=== PATIENT | female | born 1995 | race American Indian/Alaskan Native ===

== ENCOUNTER 2019-11-22 21:33 | Emergency (ER) | payer SELFPAY ==
[2019-11-23] MEDS ORDERED: ACETAMINOPHEN 325 MG TAB PO ONE
[2019-11-23] MEDS ORDERED: traMADol 50 MG TAB PO ONE
[2019-11-23] MEDS ORDERED: KETOROLAC 60 MG/2 ML INJ IM ONE
[2019-11-23] MEDS ORDERED: ONDANSETRON 4 MG ODT TAB PO ONE
[2019-11-23 00:01] LABS: Bacteria,Urine 1+ /HPF (Negative); Bilirubin,Urine NEG (Negative); Blood,Urine LG (Negative); Color,Urine Red (Yellow); Mucus,Urine 2+ /HPF; Urobilinogen,Urine < 2.0 mg/dL (<2.0)
[2019-11-23 00:02] LABS: RBC,Urine > 182.0 /HPF (0.0-6.0)
[2019-11-23 00:07] LABS: HCG Qualitative,Urine Negative (Negative)
[2019-11-23 00:13] LABS: Amphetamine Screen,Urine PRESUMPTIVE NEGATIVE; Benzodiazepines Screen,Urine PRESUMPTIVE NEGATIVE; Cocaine Screen,Urine PRESUMPTIVE NEGATIVE; Methadone Screen,Urine PRESUMPTIVE NEGATIVE; Opiate Screen,Urine PRESUMPTIVE NEGATIVE
[2019-11-23 00:14] LABS: Basophils % (Auto) 0.4 % (0.0-1.8); Eosinophils # (Auto) 0.1 K/mm3 (0.0-0.4); Eosinophils % (Auto) 0.8 % (0.0-4.3); Hematocrit 36.9 % (30.3-42.9); Hemoglobin 12.3 gm/dl (10.1-14.3); Lymphocytes # (Auto) 0.7 K/mm3 (1.2-5.4); Lymphocytes % (Auto) 9.6 % (13.4-35.0); Mean Corpuscular HGB Conc 33 % (30-34); Mean Corpuscular Volume 81 fl (79-97); Monocytes # (Auto) 0.8 K/mm3 (0.0-0.8); Monocytes % (Auto) 11.4 % (0.0-7.3); Platelet Count 172 K/mm3 (140-440); Red Blood Count 4.55 M/mm3 (3.65-5.03); Red Cell Distribution Width 14.8 % (13.2-15.2)
[2019-11-23 00:27] LABS: INR 1.06 (0.87-1.13)
[2019-11-23 00:37] LABS: Alanine Aminotransferase 13 units/L (7-56); Albumin 4.2 g/dL (3.9-5); BUN/Creatinine Ratio 13; Blood Urea Nitrogen 8 mg/dL (7-17); Hemolysis Index 10
[2019-11-23 00:40] LABS: Cannabinoid Screen,Urine PRESUMPTIVE POSITIVE
--- NOTE | 2019-11-23 01:02 | XRay Report ---
CHEST 2 VIEWS, 11/23/2019 12:20 AM INDICATION: Chest pain. Shortness of breath. COMPARISON: None FINDINGS: Support devices: None Heart: The heart is normal in size. Lungs/pleura: The lungs are clear of focal airspace disease or significant pleural effusion. Additional findings: Evaluation of bony structures demonstrate no evidence of acute bony abnormality. IMPRESSION: 1. No evidence of acute cardiopulmonary process. Signer Name: Alexandria Lyman MD Signed: 11/23/2019 12:57 AM Workstation Name: [id number]
--- NOTE | 2019-11-23 01:07 | Emergency Department Report ---
ED Chest Pain HPI - General Chief Complaint: Dyspnea/Respdistress Stated Complaint: ASHTYN/ANXIETY Time Seen by Provider: 11/22/19 23:52 Source: EMS Mode of arrival: Ambulatory Limitations: No Limitations, Physical Limitation - History of Present Illness Initial Comments: 24-year-old female with a past medical history of anxiety and panic attacks presents to Hospital planning of sternal chest pain just with the palpation, movement, and deep inspiration. Patient having a dry cough with hot and cold feeling and presented with a low-grade fever today. She also complains of some abdominal pain. C/o of nausea, vomiting, or diarrhea. She is no complaints of nausea, vomiting, or diarrhea. Patient does have a control implant. No calf tenderness or leg edema reported. Pt did not receive a flu shot. PMD: None Severity scale (0 -10): 5 - Related Data Home Medications Medication Instructions Recorded Confirmed Last Taken Etonogestrel [Nexplanon] 11/30/13 11/30/13 11/30/13 Previous Rx's Medication Instructions Recorded Last Taken Type Azithromycin [Zithromax] 2 tab PO ONCE #2 tablet 11/30/13 Unknown Rx Cefuroxime Axetil [Ceftin] 500 mg PO Q12H #14 tablet 11/30/13 Unknown Rx Fluconazole [Diflucan] 150 mg PO QDAY #1 tablet 11/30/13 Unknown Rx metroNIDAZOLE [Flagyl] 500 mg PO BID #20 tablet 11/30/13 Unknown Rx Benzonatate [Tessalon Perles] 100 mg PO Q8HR PRN #20 capsule 11/23/19 Unknown Rx Ibuprofen [Motrin] 800 mg PO Q8HR PRN #20 tablet 11/23/19 Unknown Rx Sulfamethoxazole/Trimethoprim 1 each PO BID #10 tablet 11/23/19 Unknown Rx [Bactrim DS TAB] traMADoL [Ultram 50 MG tab] 50 mg PO Q6HR PRN #15 tablet 11/23/19 Unknown Rx Allergies Allergy/AdvReac Type Severity Reaction Status Date / Time No Known Allergies Allergy Verified 11/30/13 05:48 Heart Score - HEART Score History: Slightly suspicious EKG: Normal Age: < 45 Risk factors: No known risk factors Troponin: < normal limit HEART Score: 0 ED Review of Systems ROS: Stated complaint: ASHTYN/ANXIETY Other details as noted in HPI Comment: All other systems reviewed and negative ED Past Medical Hx - Past Medical History Previous Medical History?: Yes Hx Seizures: Yes (no meds) Hx Psychiatric Treatment: Yes (anxiety, panic attacks) Additional medical history: Panic attack, Ovarian Cyst, anxiety - Surgical History Past Surgical History?: Yes - Social History Smoking Status: Never Smoker - Medications Home Medications: Home Medications Medication Instructions Recorded Confirmed Last Taken Type Azithromycin [Zithromax] 2 tab PO ONCE #2 tablet 11/30/13 Unknown Rx Cefuroxime Axetil [Ceftin] 500 mg PO Q12H #14 tablet 11/30/13 Unknown Rx Etonogestrel [Nexplanon] 11/30/13 11/30/13 11/30/13 History Fluconazole [Diflucan] 150 mg PO QDAY #1 tablet 11/30/13 Unknown Rx metroNIDAZOLE [Flagyl] 500 mg PO BID #20 tablet 11/30/13 Unknown Rx Benzonatate [Tessalon Perles] 100 mg PO Q8HR PRN #20 capsule 11/23/19 Unknown Rx Ibuprofen [Motrin] 800 mg PO Q8HR PRN #20 tablet 11/23/19 Unknown Rx Sulfamethoxazole/Trimethoprim 1 each PO BID #10 tablet 11/23/19 Unknown Rx [Bactrim DS TAB] traMADoL [Ultram 50 MG tab] 50 mg PO Q6HR PRN #15 tablet 11/23/19 Unknown Rx ED Physical Exam - General Limitations: No Limitations, Physical Limitation - Other Other exam information: General: No acute distress Head: Atraumatic Eyes: normal appearance ENT: Moist mucous membranes Neck: Normal appearance, no midline tenderness Chest: Clear to auscultation bilaterally, sternal chest wall tenderness to palpation and with movement CV: Regular rate and rhythm Abdomen: Soft, normal bowel sounds, mild suprapubic tenderness, nondistended, no rebound or guarding Back: Normal inspection Extremity: Normal inspection, full range of motion, tenderness or leg edema Neuro: Alert O x 3, no facial asymmetry, speech clear, no gross motor sensory deficit Psych: Appropriate behavior Skin: No rash ED Course Vital Signs 11/22/19 11/23/19 21:49 01:13 Temperature 100.1 F H 99.5 F Pulse Rate 114 H 72 Respiratory 18 20 Rate Blood Pressure 143/111 130/76 O2 Sat by Pulse 100 98 Oximetry - Reevaluation(s) Reevaluation #1: 11/23/19 01:20 Vital signs improved with pain and fever reduction. SCOTT score - Scott Score Age > 65: (0) No Aspirin use within the Past 7 Days: (0) No 3 or more CAD Risk Factors: (0) No 2 or more Angina events in past 24 hrs: (0) No Known CAD with more than 50% Stenosis: (0) No Elevated Cardiac Markers: (0) No ST Deviation Greater than 0.5mm: (0) No SCOTT Score: 0 ED Medical Decision Making - Lab Data Result diagrams: 11/23/19 00:01 11/23/19 00:01 Lab Results 11/22/19 11/22/19 11/22/19 Range/Units 23:42 23:42 23:42 WBC (4.5-11.0) K/mm3 RBC (3.65-5.03) M/mm3 Hgb (10.1-14.3) gm/dl Hct (30.3-42.9) % MCV (79-97) fl MCH (28-32) pg MCHC (30-34) % RDW (13.2-15.2) % Plt Count (140-440) K/mm3 Lymph % (Auto) (13.4-35.0) % [place] % (Auto) (0.0-7.3) % Eos % (Auto) (0.0-4.3) % Baso % (Auto) (0.0-1.8) % Lymph # (1.2-5.4) K/mm3 [place] # (0.0-0.8) K/mm3 Eos # (0.0-0.4) K/mm3 Baso # (0.0-0.1) K/mm3 Seg Neutrophils % (40.0-70.0) % Seg Neutrophils # (1.8-7.7) K/mm3 PT (12.2-14.9) Sec. INR (0.87-1.13) Sodium (137-145) mmol/L Potassium (3.6-5.0) mmol/L Chloride (98-107) mmol/L Carbon Dioxide (22-30) mmol/L Anion Gap mmol/L BUN (7-17) mg/dL Creatinine (0.7-1.2) mg/dL Estimated GFR ml/min BUN/Creatinine Ratio % Glucose (65-100) mg/dL Calcium (8.4-10.2) mg/dL Total Bilirubin (0.1-1.2) mg/dL AST (5-40) units/L ALT (7-56) units/L Alkaline Phosphatase (35-129) units/L Total Protein (6.3-8.2) g/dL Albumin (3.9-5) g/dL Albumin/Globulin Ratio % Lipase (13-60) units/L HCG, Qual (Negative) Urine Color Red (Yellow) Urine Turbidity Slightly-cloudy (Clear) Urine pH 6.0 (5.0-7.0) Ur Specific [place] 1.025 (1.003-1.030) Urine Protein 100 mg/dl (Negative) mg/dL Urine Glucose (UA) Neg (Negative) mg/dL Urine Ketones 20 (Negative) mg/dL Urine Blood Lg (Negative) Urine Nitrite Neg (Negative) Urine Bilirubin Neg (Negative) Urine Urobilinogen < 2.0 (<2.0) mg/dL Ur Leukocyte Esterase Neg (Negative) Urine WBC (Auto) 16.0 H (0.0-6.0) /HPF Urine RBC (Auto) > 182.0 (0.0-6.0) /HPF U Epithel Cells (Auto) 14.0 H (0-13.0) /HPF Urine Bacteria (Auto) 1+ (Negative) /HPF Urine Mucus 2+ /HPF Urine HCG, Qual Negative (Negative) Urine Opiates Screen Presumptive negative Urine Methadone Screen Presumptive negative Ur Barbiturates Screen Presumptive negative Ur Phencyclidine Scrn Presumptive negative Ur Amphetamines Screen Presumptive negative U Benzodiazepines Scrn Presumptive negative Urine Cocaine Screen Presumptive negative U Marijuana (THC) Screen Presumptive positive Drugs of Abuse Note Disclamer 11/23/19 11/23/19 11/23/19 Range/Units 00:01 00:01 00:01 WBC 7.0 (4.5-11.0) K/mm3 RBC 4.55 (3.65-5.03) M/mm3 Hgb 12.3 (10.1-14.3) gm/dl Hct 36.9 (30.3-42.9) % MCV 81 (79-97) fl MCH 27 L (28-32) pg MCHC 33 (30-34) % RDW 14.8 (13.2-15.2) % Plt Count 172 (140-440) K/mm3 Lymph % (Auto) 9.6 L (13.4-35.0) % [place] % (Auto) 11.4 H (0.0-7.3) % Eos % (Auto) 0.8 (0.0-4.3) % Baso % (Auto) 0.4 (0.0-1.8) % Lymph # 0.7 L (1.2-5.4) K/mm3 [place] # 0.8 (0.0-0.8) K/mm3 Eos # 0.1 (0.0-0.4) K/mm3 Baso # 0.0 (0.0-0.1) K/mm3 Seg Neutrophils % 77.8 H (40.0-70.0) % Seg Neutrophils # 5.4 (1.8-7.7) K/mm3 PT (12.2-14.9) Sec. INR (0.87-1.13) Sodium 138 (137-145) mmol/L Potassium 3.9 (3.6-5.0) mmol/L Chloride 102.8 (98-107) mmol/L Carbon Dioxide 20 L (22-30) mmol/L Anion Gap 19 mmol/L BUN 8 (7-17) mg/dL Creatinine 0.6 L (0.7-1.2) mg/dL Estimated GFR > 60 ml/min BUN/Creatinine Ratio 13 % Glucose 86 (65-100) mg/dL Calcium 9.0 (8.4-10.2) mg/dL Total Bilirubin 0.50 (0.1-1.2) mg/dL AST 17 (5-40) units/L ALT 13 (7-56) units/L Alkaline Phosphatase 62 (35-129) units/L Total Protein 7.7 (6.3-8.2) g/dL Albumin 4.2 (3.9-5) g/dL Albumin/Globulin Ratio 1.2 % Lipase 23 (13-60) units/L HCG, Qual Negative (Negative) Urine Color (Yellow) Urine Turbidity (Clear) Urine pH (5.0-7.0) Ur Specific [place] (1.003-1.030) Urine Protein (Negative) mg/dL Urine Glucose (UA) (Negative) mg/dL Urine Ketones (Negative) mg/dL Urine Blood (Negative) Urine Nitrite (Negative) Urine Bilirubin (Negative) Urine Urobilinogen (<2.0) mg/dL Ur Leukocyte Esterase (Negative) Urine WBC (Auto) (0.0-6.0) /HPF Urine RBC (Auto) (0.0-6.0) /HPF U Epithel Cells (Auto) (0-13.0) /HPF Urine Bacteria (Auto) (Negative) /HPF Urine Mucus /HPF Urine HCG, Qual (Negative) Urine Opiates Screen Urine Methadone Screen Ur Barbiturates Screen Ur Phencyclidine Scrn Ur Amphetamines Screen U Benzodiazepines Scrn Urine Cocaine Screen U Marijuana (THC) Screen Drugs of Abuse Note 11/23/19 Range/Units 00:01 WBC (4.5-11.0) K/mm3 RBC (3.65-5.03) M/mm3 Hgb (10.1-14.3) gm/dl Hct (30.3-42.9) % MCV (79-97) fl MCH (28-32) pg MCHC (30-34) % RDW (13.2-15.2) % Plt Count (140-440) K/mm3 Lymph % (Auto) (13.4-35.0) % [place] % (Auto) (0.0-7.3) % Eos % (Auto) (0.0-4.3) % Baso % (Auto) (0.0-1.8) % Lymph # (1.2-5.4) K/mm3 [place] # (0.0-0.8) K/mm3 Eos # (0.0-0.4) K/mm3 Baso # (0.0-0.1) K/mm3 Seg Neutrophils % (40.0-70.0) % Seg Neutrophils # (1.8-7.7) K/mm3 PT 13.9 (12.2-14.9) Sec. INR 1.06 (0.87-1.13) Sodium (137-145) mmol/L Potassium (3.6-5.0) mmol/L Chloride (98-107) mmol/L Carbon Dioxide (22-30) mmol/L Anion Gap mmol/L BUN (7-17) mg/dL Creatinine (0.7-1.2) mg/dL Estimated GFR ml/min BUN/Creatinine Ratio % Glucose (65-100) mg/dL Calcium (8.4-10.2) mg/dL Total Bilirubin (0.1-1.2) mg/dL AST (5-40) units/L ALT (7-56) units/L Alkaline Phosphatase (35-129) units/L Total Protein (6.3-8.2) g/dL Albumin (3.9-5) g/dL Albumin/Globulin Ratio % Lipase (13-60) units/L HCG, Qual (Negative) Urine Color (Yellow) Urine Turbidity (Clear) Urine pH (5.0-7.0) Ur Specific [place] (1.003-1.030) Urine Protein (Negative) mg/dL Urine Glucose (UA) (Negative) mg/dL Urine Ketones (Negative) mg/dL Urine Blood (Negative) Urine Nitrite (Negative) Urine Bilirubin (Negative) Urine Urobilinogen (<2.0) mg/dL Ur Leukocyte Esterase (Negative) Urine WBC (Auto) (0.0-6.0) /HPF Urine RBC (Auto) (0.0-6.0) /HPF U Epithel Cells (Auto) (0-13.0) /HPF Urine Bacteria (Auto) (Negative) /HPF Urine Mucus /HPF Urine HCG, Qual (Negative) Urine Opiates Screen Urine Methadone Screen Ur Barbiturates Screen Ur Phencyclidine Scrn Ur Amphetamines Screen U Benzodiazepines Scrn Urine Cocaine Screen U Marijuana (THC) Screen Drugs of Abuse Note - EKG Data -: EKG Interpreted by Ct EKG shows normal: sinus rhythm, ST-T waves (no stemi) Rate: normal (82) - EKG Data When compared to previous EKG there are: previous EKG unavailable - Radiology Data Radiology results: report reviewed CHEST 2 VIEWS, 11/23/2019 12:20 AM INDICATION: Chest pain. Shortness of breath. COMPARISON: None FINDINGS: Support devices: None Heart: The heart is normal in size. Lungs/pleura: The lungs are clear of focal airspace disease or significant ple ural effusion. Additional findings: Evaluation of bony structures demonstrate no evidence of acute bony abnormality. IMPRESSION: 1. No evidence of acute cardiopulmonary process. - Medical Decision Making Patient has reproducible sternal chest wall tenderness suggestive of costochondritis. EKG sinus rhythm rate in the 80s. Symptoms improved after Toradol, tramadol, and Tylenol. Chest x-ray, EKG, and labs otherwise unremarkable. Urine with possible UTI but patient is also on her menstrual cycle. Will be covered with Bactrim with first dose in the ED. Symptomatically treatment provided. Outpatient follow-up advised - Differential Diagnosis costochondritis, pneumonia, bronchitis, UTI, viral syndrome, pe Critical Care Time: No Critical care attestation.: If time is entered above; I have spent that time in minutes in the direct care of this critically ill patient, excluding procedure time. ED Disposition Clinical Impression: Costochondritis, acute, URI (upper respiratory infection), UTI (urinary tract infection) Disposition: TO HOME OR SELFCARE Is pt being admited?: No Does the pt Need Aspirin: No Condition: Stable Instructions: Urinary Tract Infection in Women (ED), Costochondritis (ED), Upper Respiratory Infection (ED) Additional Instructions: Take the medication as prescribed. Follow-up with your doctor or doctor/clinic provided. Return if symptoms worsen as indicated by your discharge instructions. Prescriptions: Sulfamethoxazole/Trimethoprim [Bactrim DS TAB] 1 each PO BID #10 tablet Ibuprofen [Motrin] 800 mg PO Q8HR PRN #20 tablet PRN Reason: Pain, Moderate (4-6) Benzonatate [Tessalon Perles] 100 mg PO Q8HR PRN #20 capsule PRN Reason: Cough traMADoL [Ultram 50 MG tab] 50 mg PO Q6HR PRN #15 tablet PRN Reason: Pain Referrals: DEBBI ANTONIO MD [Staff Physician] - 3-5 Days [facility] [Provider Group] - 3-5 Days Time of Disposition: 01:23
[2019-11-23] MEDS ORDERED: SULFAMETHOXAZOLE/TRIMETHOPRIM 800/160MG DS TAB PO ONE (01:09)
[2019-11-23 01:16] VITALS: BP 130/76
== END 2019-11-23 01:52 | disposition home or self-care (01) ==
LOC: ED 21:33
DX: M94.0 Chondrocostal junction syndrome [Tietze] (principal); N39.0 Urinary tract infection, site not specified; J06.9 Acute upper respiratory infection, unspecified; F41.9 Anxiety disorder, unspecified; Z98.890 Other specified postprocedural states; Z79.899 Other long term (current) drug therapy
CPT/HCPCS: 36415; 71046; 80053; 80307; 81001; 81025; 83690; 84703; 85025; 85610; 87086; 93005; 93010; 96372; 99284; J1885; Q0162

== ENCOUNTER 2022-03-23 09:16 | Emergency (ER) | payer SELFPAY ==
[2022-03-23] MEDS ORDERED: SODIUM CHLORIDE 0.9% 1000 ML 1,000 ML IV ONE (14:38)
[2022-03-23] MEDS ORDERED: ONDANSETRON 4 MG/2 ML INJ IV ONE (14:38)
[2022-03-23] MEDS ORDERED: MORPHINE 4 MG/1 ML INJ IV ONE (14:38)
[2022-03-23 15:28] LABS: Basophils % (Auto) 0.4 % (0.0-1.8); Eosinophils % (Auto) 0.1 % (0.0-4.3); Hematocrit 34.9 % (30.3-42.9); Hemoglobin 11.1 gm/dl (10.1-14.3); Lymphocytes # (Auto) 0.9 K/mm3 (1.2-5.4); Lymphocytes % (Auto) 9.9 % (13.4-35.0); Mean Corpuscular HGB Conc 32 % (30-34); Mean Corpuscular Volume 76 fl (79-97); Monocytes # (Auto) 0.5 K/mm3 (0.0-0.8); Monocytes % (Auto) 5.7 % (0.0-7.3); Platelet Count 197 K/mm3 (140-440); Red Blood Count 4.58 M/mm3 (3.65-5.03); Red Cell Distribution Width 17.7 % (13.2-15.2)
[2022-03-23 15:36] LABS: Bilirubin,Urine NEG (Negative); Blood,Urine NEG (Negative); Color,Urine Yellow (Yellow); Mucus,Urine 3+ /HPF; Urobilinogen,Urine < 2.0 mg/dL (<2.0)
[2022-03-23 15:39] LABS: Alanine Aminotransferase 10 units/L (7-56); Albumin 4.7 g/dL (3.9-5); Blood Urea Nitrogen 10 mg/dL (7-17); Calcium 9.3 mg/dL (8.4-10.2); Hemolysis Index 2
[2022-03-23 15:40] LABS: BUN/Creatinine Ratio 14; Bilirubin,Direct < 0.2 mg/dL (0-0.2)
--- NOTE | 2022-03-23 16:27 | Emergency Department Report ---
ED Abdominal Pain HPI - General Chief Complaint: Nausea/Vomiting/Diarrhea Stated Complaint: NAUSEA/VOMITING SINCE YESTERDAY Time Seen by Provider: 03/23/22 14:13 Source: patient Mode of arrival: Ambulatory Limitations: No Limitations - History of Present Illness Initial Comments: This is a 26-year-old female nontoxic, well nourished in appearance, no acute signs of distress presents to the ED with c/o of nausea and vomiting and abdominal pain several days. Patient describes vomiting as food content and yellow gastric acid. Patient describes abdominal pain as cramping and aching with level of 8/10 diffuse. Patient denies chest pain, short of breath, fever, hemoptysis, blood in stool, chills, headache, stiff neck, numbness or tingling. Patient denies any diarrhea or constipation. Denies any blood in stool. Denies any vaginal discharge. Denies any pelvic pain. Denies any flank or back pain. Patient denies any recent travels. Patient stated allergies to latex. MD Complaint: abdominal pain -: days(s) Location: diffuse Radiation: none Migration to: no migration Severity: mild Severity scale (0 -10): 8 Quality: cramping, aching Consistency: constant Improves With: nothing Worsens With: nothing Associated Symptoms: nausea, vomiting. denies: diarrhea, fever, chills, constipation, dysuria, hematemesis, hematochezia, melena, hematuria, anorexia, syncope - Related Data Home Medications Medication Instructions Recorded Confirmed Last Taken Etonogestrel [Nexplanon] 11/30/13 11/30/13 11/30/13 Previous Rx's Medication Instructions Recorded Last Taken Type Azithromycin [Zithromax] 2 tab PO ONCE #2 tablet 11/30/13 Unknown Rx Cefuroxime Axetil [Ceftin] 500 mg PO Q12H #14 tablet 11/30/13 Unknown Rx Fluconazole [Diflucan] 150 mg PO QDAY #1 tablet 11/30/13 Unknown Rx metroNIDAZOLE [Flagyl] 500 mg PO BID #20 tablet 11/30/13 Unknown Rx Benzonatate [Tessalon Perles] 100 mg PO Q8HR PRN #20 capsule 11/23/19 Unknown Rx Ibuprofen [Motrin] 800 mg PO Q8HR PRN #20 tablet 11/23/19 Unknown Rx Sulfamethoxazole/Trimethoprim 1 each PO BID #10 tablet 11/23/19 Unknown Rx [Bactrim DS TAB] traMADoL [Ultram 50 MG tab] 50 mg PO Q6HR PRN #15 tablet 11/23/19 Unknown Rx Dicyclomine [Bentyl] 20 mg PO Q12H PRN #12 tab 03/23/22 Unknown Rx Ondansetron [Zofran Odt] 4 mg PO Q8HR PRN #12 tab.rapdis 03/23/22 Unknown Rx cephALEXin [Keflex] 500 mg PO Q6HR #28 capsule 03/23/22 Unknown Rx Allergies Allergy/AdvReac Type Severity Reaction Status Date / Time latex Allergy Hives Verified 03/23/22 09:42 ED Review of Systems ROS: Stated complaint: NAUSEA/VOMITING SINCE YESTERDAY Other details as noted in HPI Comment: All other systems reviewed and negative Constitutional: denies: chills, fever Eyes: denies: eye pain, eye discharge, vision change ENT: denies: ear pain, throat pain Respiratory: denies: cough, shortness of breath, wheezing Cardiovascular: denies: chest pain, palpitations Endocrine: no symptoms reported Gastrointestinal: abdominal pain, nausea, vomiting. denies: diarrhea, constipation, hematemesis, melena, hematochezia Genitourinary: denies: urgency, dysuria, discharge Musculoskeletal: denies: back pain, joint swelling, arthralgia Skin: denies: rash, lesions Neurological: denies: headache, weakness, paresthesias Psychiatric: denies: anxiety, depression Hematological/Lymphatic: denies: easy bleeding, easy bruising ED Past Medical Hx - Past Medical History Hx Seizures: Yes (no meds) Hx Psychiatric Treatment: Yes (anxiety, panic attacks) Additional medical history: Panic attack, Ovarian Cyst, anxiety - Social History Smoking Status: Never Smoker - Medications Home Medications: Home Medications Medication Instructions Recorded Confirmed Last Taken Type Azithromycin [Zithromax] 2 tab PO ONCE #2 tablet 11/30/13 Unknown Rx Cefuroxime Axetil [Ceftin] 500 mg PO Q12H #14 tablet 11/30/13 Unknown Rx Etonogestrel [Nexplanon] 11/30/13 11/30/13 11/30/13 History Fluconazole [Diflucan] 150 mg PO QDAY #1 tablet 11/30/13 Unknown Rx metroNIDAZOLE [Flagyl] 500 mg PO BID #20 tablet 11/30/13 Unknown Rx Benzonatate [Tessalon Perles] 100 mg PO Q8HR PRN #20 capsule 11/23/19 Unknown Rx Ibuprofen [Motrin] 800 mg PO Q8HR PRN #20 tablet 11/23/19 Unknown Rx Sulfamethoxazole/Trimethoprim 1 each PO BID #10 tablet 11/23/19 Unknown Rx [Bactrim DS TAB] traMADoL [Ultram 50 MG tab] 50 mg PO Q6HR PRN #15 tablet 11/23/19 Unknown Rx Dicyclomine [Bentyl] 20 mg PO Q12H PRN #12 tab 03/23/22 Unknown Rx Ondansetron [Zofran Odt] 4 mg PO Q8HR PRN #12 tab.rapdis 03/23/22 Unknown Rx cephALEXin [Keflex] 500 mg PO Q6HR #28 capsule 03/23/22 Unknown Rx ED Physical Exam - General Limitations: No Limitations General appearance: alert, in no apparent distress - Head Head exam: Present: atraumatic, normocephalic - Eye Eye exam: Present: normal appearance - Neck Neck exam: Present: normal inspection, full ROM. Absent: lymphadenopathy - Respiratory Respiratory exam: Present: normal lung sounds bilaterally. Absent: respiratory distress, wheezes, rales, rhonchi, stridor, chest wall tenderness, accessory muscle use, decreased breath sounds, prolonged expiratory - Cardiovascular Cardiovascular Exam: Present: regular rate, normal rhythm, normal heart sounds. Absent: bradycardia, tachycardia, irregular rhythm, systolic murmur, diastolic murmur, rubs, gallop - GI/Abdominal GI/Abdominal exam: Present: soft, tenderness (diffuse), normal bowel sounds. Absent: distended, guarding, rebound, rigid, diminished bowel sounds - Extremities Exam Extremities exam: Present: full ROM - Back Exam Back exam: Present: normal inspection, full ROM. Absent: tenderness, CVA tenderness (R), CVA tenderness (L), muscle spasm, paraspinal tenderness, vertebral tenderness, rash noted - Neurological Exam Neurological exam: Present: alert, oriented X3, normal gait - Psychiatric Psychiatric exam: Present: normal affect, normal mood - Skin Skin exam: Present: warm, dry, intact, normal color. Absent: rash ED Course Vital Signs 03/23/22 09:43 Temperature 98.1 F Pulse Rate 76 Respiratory 18 Rate Blood Pressure 117/72 [Right] O2 Sat by Pulse 99 Oximetry - Reevaluation(s) Reevaluation #1: 03/23/22 16:27 Patient is speaking in full sentences with no signs of distress noted. ED Medical Decision Making - Lab Data Result diagrams: 03/23/22 14:47 03/23/22 14:47 Lab Results 03/23/22 03/23/22 03/23/22 Range/Units 14:47 14:47 14:47 WBC 9.5 (4.5-11.0) K/mm3 RBC 4.58 (3.65-5.03) M/mm3 Hgb 11.1 (10.1-14.3) gm/dl Hct 34.9 (30.3-42.9) % MCV 76 L (79-97) fl MCH 24 L (28-32) pg MCHC 32 (30-34) % RDW 17.7 H (13.2-15.2) % Plt Count 197 (140-440) K/mm3 Lymph % (Auto) 9.9 L (13.4-35.0) % [place] % (Auto) 5.7 (0.0-7.3) % Eos % (Auto) 0.1 (0.0-4.3) % Baso % (Auto) 0.4 (0.0-1.8) % Lymph # (Auto) 0.9 L (1.2-5.4) K/mm3 [place] # (Auto) 0.5 (0.0-0.8) K/mm3 Eos # (Auto) 0.0 (0.0-0.4) K/mm3 Baso # (Auto) 0.0 (0.0-0.1) K/mm3 Seg Neutrophils % 83.9 H (40.0-70.0) % Seg Neutrophils # 8.0 H (1.8-7.7) K/mm3 Sodium (137-145) mmol/L Potassium (3.6-5.0) mmol/L Chloride (98-107) mmol/L Carbon Dioxide (22-30) mmol/L Anion Gap mmol/L BUN (7-17) mg/dL Creatinine (0.6-1.2) mg/dL Estimated GFR ml/min BUN/Creatinine Ratio % Glucose (65-100) mg/dL Calcium (8.4-10.2) mg/dL Total Bilirubin (0.1-1.2) mg/dL Direct Bilirubin (0-0.2) mg/dL Indirect Bilirubin mg/dL AST (5-40) units/L ALT (7-56) units/L Alkaline Phosphatase (35-129) units/L Total Protein (6.3-8.2) g/dL Albumin (3.9-5) g/dL Albumin/Globulin Ratio % Lipase 30 (13-60) units/L HCG, Qual Negative (Negative) Urine Color (Yellow) Urine Turbidity (Clear) Urine pH (5.0-7.0) Ur Specific [place] (1.003-1.030) Urine Protein (Negative) mg/dL Urine Glucose (UA) (Negative) mg/dL Urine Ketones (Negative) mg/dL Urine Blood (Negative) Urine Nitrite (Negative) Urine Bilirubin (Negative) Urine Urobilinogen (<2.0) mg/dL Ur Leukocyte Esterase (Negative) Urine WBC (Auto) (0.0-6.0) /HPF Urine RBC (Auto) (0.0-6.0) /HPF U Epithel Cells (Auto) (0-13.0) /HPF Urine Mucus /HPF 03/23/22 03/23/22 Range/Units 14:47 Unknown WBC (4.5-11.0) K/mm3 RBC (3.65-5.03) M/mm3 Hgb (10.1-14.3) gm/dl Hct (30.3-42.9) % MCV (79-97) fl MCH (28-32) pg MCHC (30-34) % RDW (13.2-15.2) % Plt Count (140-440) K/mm3 Lymph % (Auto) (13.4-35.0) % [place] % (Auto) (0.0-7.3) % Eos % (Auto) (0.0-4.3) % Baso % (Auto) (0.0-1.8) % Lymph # (Auto) (1.2-5.4) K/mm3 [place] # (Auto) (0.0-0.8) K/mm3 Eos # (Auto) (0.0-0.4) K/mm3 Baso # (Auto) (0.0-0.1) K/mm3 Seg Neutrophils % (40.0-70.0) % Seg Neutrophils # (1.8-7.7) K/mm3 Sodium 140 (137-145) mmol/L Potassium 4.2 (3.6-5.0) mmol/L Chloride 103.7 (98-107) mmol/L Carbon Dioxide 25 (22-30) mmol/L Anion Gap 16 mmol/L BUN 10 (7-17) mg/dL Creatinine 0.7 (0.6-1.2) mg/dL Estimated GFR > 60 ml/min BUN/Creatinine Ratio 14 % Glucose 99 (65-100) mg/dL Calcium 9.3 (8.4-10.2) mg/dL Total Bilirubin 0.60 (0.1-1.2) mg/dL Direct Bilirubin < 0.2 (0-0.2) mg/dL Indirect Bilirubin 0.4 mg/dL AST 13 (5-40) units/L ALT 10 (7-56) units/L Alkaline Phosphatase 62 (35-129) units/L Total Protein 7.3 (6.3-8.2) g/dL Albumin 4.7 (3.9-5) g/dL Albumin/Globulin Ratio 1.8 % Lipase (13-60) units/L HCG, Qual (Negative) Urine Color Yellow (Yellow) Urine Turbidity Slightly-cloudy (Clear) Urine pH 6.0 (5.0-7.0) Ur Specific [place] 1.027 (1.003-1.030) Urine Protein 100 mg/dl (Negative) mg/dL Urine Glucose (UA) Neg (Negative) mg/dL Urine Ketones 80 (Negative) mg/dL Urine Blood Neg (Negative) Urine Nitrite Neg (Negative) Urine Bilirubin Neg (Negative) Urine Urobilinogen < 2.0 (<2.0) mg/dL Ur Leukocyte Esterase Tr (Negative) Urine WBC (Auto) 16.0 H (0.0-6.0) /HPF Urine RBC (Auto) 2.0 (0.0-6.0) /HPF U Epithel Cells (Auto) 56.0 H (0-13.0) /HPF Urine Mucus 3+ /HPF - Radiology Data [facility] [address] [place] [address] Cat Scan Report Signed Patient: VEL SANDERS MR #: [id number] : 1995 Acct:[id number] Age/Sex: 26 / F ADM Date: 03/23/22 Loc: ED Attending Dr: Ordering Physician: BHAKTI ODMINGO NP Date of Service: 03/23/22 Procedure(s): CT abdomen pelvis w con Accession Number(s): [id number] cc: BHAKTI DOMINGO NP CT abdomen pelvis w con INDICATION / CLINICAL INFORMATION: abd pain with n/v. TECHNIQUE: Axial CT images were obtained through the abdomen and pelvis after 100 cc of Omnipaque [address] scans at this location are performed using CT dose reduction for ALARA by means of automated exposure control. COMPARISON: None available. FINDINGS: LOWER CHEST: No significant abnormality LIVER: No significant abnormality GALLBLADDER/BILIARY TREE: No significant abnormality PANCREAS: No significant abnormality SPLEEN: No significant abnormality ADRENALS: No significant abnormality RIGHT KIDNEY / URETER: No significant abnormality LEFT KIDNEY / URETER: No significant abnormality URINARY BLADDER: Mild diffuse bladder wall thickening may be related to incomplete distention. REPRODUCTIVE ORGANS: Uterus/adnexa are appropriate for age. STOMACH / BOWEL: Small bowel is normal in caliber. The colon is unremarkable. The appendix is normal in caliber. LYMPH NODES: No significant adenopathy. VASCULATURE: No significant abnormality. OTHER: No free air, free fluid, or focal fluid collection is identified. SKELETAL SYSTEM: No acute osseous findings. IMPRESSION: 1. Mild bladder wall thickening, may be related to incomplete distention or could reflect mild cystitis. Recommend correlation with urinalysis. 2. Otherwise, no acute findings of the abdomen or pelvis. No evidence of bowel obstruction or localized inflammation. Signer Name: Cammy Jama MD Signed: 03/23/2022 4:36 PM Workstation Name: [id number] Transcribed By: CARL Dictated By: CAMMY JAMA MD Electronically Authenticated By: CAMMY JAMA MD Signed Date/Time: 03/23/22 163 DD/ 163 TD/TT: - Medical Decision Making This is a 26-year-old female that presents with abdominal pain, n/v and UTI. Patient is stable and was examined by me. Labs obtained. UA obtained. CT of abdomen obtained and dictated by the radiologist. Patient is notified of the report with no questions noted by the patient. Vital signs are stable prior to discharge. Patient received medical treatment in the ED which patient stated symptoms has resovled and subsided. Was instructed note to operate any machinery due to possible drowsiness and stated someone will drive the patient home. A by mouth challenge has been obtained and patient tolerated well with no nausea vomiting. Patient was also instructed to Follow-up with a primary care doctor in 3-5 days or if symptoms worsen and continue return to emergency room as soon as possible. At time of discharge, the patient does not seem toxic or ill in appearance. No acute signs of distress noted. Patient agrees to discharge treatment plan of care. No further questions noted by the patient. Critical care attestation.: If time is entered above; I have spent that time in minutes in the direct care of this critically ill patient, excluding procedure time. ED Disposition Clinical Impression: Abdominal pain Qualifiers: Abdominal location: generalized Qualified Code(s): R10.84 - Generalized abdominal pain Nausea & vomiting Qualifiers: Vomiting type: unspecified Qualified Code(s): R11.2 - Nausea with vomiting, unspecified UTI (urinary tract infection) Qualifiers: Urinary tract infection type: acute cystitis Hematuria presence: without hematuria Qualified Code(s): N30.00 - Acute cystitis without hematuria Disposition: 01 HOME / SELF CARE / HOMELESS Is pt being admited?: No Does the pt Need Aspirin: No Condition: Stable Instructions: Nausea and Vomiting, Adult, Urinary Tract Infection, Adult, Abdominal Pain, Adult, [id number] Additional Instructions: Follow-up with a primary care doctor in 3-5 days or if symptoms worsen and continue return to emergency room as soon as possible. Prescriptions: Dicyclomine [Bentyl] 20 mg PO Q12H PRN #12 tab PRN Reason: abdominal pain cephALEXin [Keflex] 500 mg PO Q6HR #28 capsule Ondansetron [Zofran Odt] 4 mg PO Q8HR PRN #12 tab.rapdis PRN Reason: Nausea Referrals: DEBBI ANTONIO MD [Primary Care Provider] - 3-5 Days PRIMARY CARE, [Referring] - 3-5 Days Time of Disposition: 16:55
--- NOTE | 2022-03-23 16:42 | Cat Scan Report ---
CT abdomen pelvis w con INDICATION / CLINICAL INFORMATION: abd pain with n/v. TECHNIQUE: Axial CT images were obtained through the abdomen and pelvis after 100 cc of Omnipaque [address] scans at this location are performed using CT dose reduction for ALARA by means of automated exposure control. COMPARISON: None available. FINDINGS: LOWER CHEST: No significant abnormality LIVER: No significant abnormality GALLBLADDER/BILIARY TREE: No significant abnormality PANCREAS: No significant abnormality SPLEEN: No significant abnormality ADRENALS: No significant abnormality RIGHT KIDNEY / URETER: No significant abnormality LEFT KIDNEY / URETER: No significant abnormality URINARY BLADDER: Mild diffuse bladder wall thickening may be related to incomplete distention. REPRODUCTIVE ORGANS: Uterus/adnexa are appropriate for age. STOMACH / BOWEL: Small bowel is normal in caliber. The colon is unremarkable. The appendix is normal in caliber. LYMPH NODES: No significant adenopathy. VASCULATURE: No significant abnormality. OTHER: No free air, free fluid, or focal fluid collection is identified. SKELETAL SYSTEM: No acute osseous findings. IMPRESSION: 1. Mild bladder wall thickening, may be related to incomplete distention or could reflect mild cystit is. Recommend correlation with urinalysis. 2. Otherwise, no acute findings of the abdomen or pelvis. No evidence of bowel obstruction or localiz ed inflammation. Signer Name: Srinivasan Jama MD Signed: 03/23/2022 4:36 PM Workstation Name: [id number]
[2022-03-23 17:41] VITALS: BP 133/84
== END 2022-03-23 17:40 | disposition home or self-care (01) ==
LOC: ED 09:16
DX: R10.9 Unspecified abdominal pain (principal); R11.2 Nausea with vomiting, unspecified; R56.9 Unspecified convulsions; F41.9 Anxiety disorder, unspecified; Z79.899 Other long term (current) drug therapy; Z91.040 Latex allergy status
CPT/HCPCS: 36415; 74177; 80048; 80076; 81001; 83690; 84703; 85025; 87086; 96361; 96374; 96375; 99284; J2270; J2405; J7030; Q9967

== ENCOUNTER 2022-03-25 09:27 | Emergency (ER) | payer SELFPAY ==
[2022-03-25 10:13] VITALS: BP 136/89
[2022-03-25] MEDS ORDERED: ONDANSETRON 4 MG/2 ML INJ IV ONE ×2 (11:55→15:39)
[2022-03-25] MEDS ORDERED: SODIUM CHLORIDE 0.9% 1000 ML 1,000 ML IV ONE (11:55)
[2022-03-25] MEDS ORDERED: MORPHINE 4 MG/1 ML INJ IV ONE (11:55)
[2022-03-25] MEDS ORDERED: cefTRIAXone/NS 1 GM/50 ML 1 GM/50 ML BAG IV ONE (11:55)
[2022-03-25] MEDS ORDERED: DICYCLOMINE 20 MG/2 ML INJ IM ONE (11:55)
--- NOTE | 2022-03-25 12:57 | Emergency Department Report ---
ED N/V/D HPI - General Chief complaint: Abdominal Pain Stated complaint: N/V AB PAIN Source: patient Mode of arrival: Ambulatory Limitations: No Limitations - History of Present Illness Initial comments: 26-year-old female presented to ED with active vomiting white content while a ttempting to examine patient.. Patient was diagnosed with a UTI and did not have medication fill. Patient states that she was unaware that she had a UTI and that she had a prescription that needed to be fill. Patient states that she has been vomiting since she left the hospital on 03/23/2022. Patient is alert and oriented x3. He states that abdominal cramping is approximately 8 out of 10 at present time. MD complaint: vomiting Description of Vomiting: watery Associated Abdominal Pain: Yes Pain Scale: 0 Quality: cramping Improves with: none Worsens with: none Associated Symptoms: denies other symptoms - Related Data Home Medications Medication Instructions Recorded Confirmed Last Taken Etonogestrel [Nexplanon] 11/30/13 11/30/13 11/30/13 Previous Rx's Medication Instructions Recorded Last Taken Type Azithromycin [Zithromax] 2 tab PO ONCE #2 tablet 11/30/13 Unknown Rx Cefuroxime Axetil [Ceftin] 500 mg PO Q12H #14 tablet 11/30/13 Unknown Rx Fluconazole [Diflucan] 150 mg PO QDAY #1 tablet 11/30/13 Unknown Rx metroNIDAZOLE [Flagyl] 500 mg PO BID #20 tablet 11/30/13 Unknown Rx Benzonatate [Tessalon Perles] 100 mg PO Q8HR PRN #20 capsule 11/23/19 Unknown Rx Ibuprofen [Motrin] 800 mg PO Q8HR PRN #20 tablet 11/23/19 Unknown Rx Sulfamethoxazole/Trimethoprim 1 each PO BID #10 tablet 11/23/19 Unknown Rx [Bactrim DS TAB] traMADoL [Ultram 50 MG tab] 50 mg PO Q6HR PRN #15 tablet 11/23/19 Unknown Rx Dicyclomine [Bentyl] 20 mg PO Q12H PRN #12 tab 03/23/22 Unknown Rx Ondansetron [Zofran Odt] 4 mg PO Q8HR PRN #12 tab.rapdis 03/23/22 Unknown Rx cephALEXin [Keflex] 500 mg PO Q6HR #28 capsule 03/23/22 Unknown Rx Promethazine [Phenergan] 25 mg PO Q6HR PRN 15 Days #30 tab 03/25/22 Unknown Rx Allergies Allergy/AdvReac Type Severity Reaction Status Date / Time latex Allergy Hives Verified 03/23/22 09:42 ED Review of Systems ROS: Stated complaint: N/V AB PAIN Other details as noted in HPI Constitutional: denies: chills, fever Eyes: denies: eye pain, eye discharge, vision change ENT: denies: ear pain, throat pain Respiratory: denies: cough, shortness of breath, wheezing Cardiovascular: denies: chest pain, palpitations Endocrine: no symptoms reported Gastrointestinal: abdominal pain, nausea. denies: diarrhea Genitourinary: denies: urgency, dysuria, discharge Musculoskeletal: denies: back pain, joint swelling, arthralgia Skin: denies: rash, lesions Neurological: denies: headache, weakness, paresthesias Psychiatric: denies: anxiety, depression Hematological/Lymphatic: denies: easy bleeding, easy bruising ED Past Medical Hx - Past Medical History Hx Seizures: Yes (no meds) Hx Psychiatric Treatment: Yes (anxiety, panic attacks) Additional medical history: Panic attack, Ovarian Cyst, anxiety - Social History Smoking Status: Never Smoker - Medications Home Medications: Home Medications Medication Instructions Recorded Confirmed Last Taken Type Azithromycin [Zithromax] 2 tab PO ONCE #2 tablet 11/30/13 Unknown Rx Cefuroxime Axetil [Ceftin] 500 mg PO Q12H #14 tablet 11/30/13 Unknown Rx Etonogestrel [Nexplanon] 11/30/13 11/30/13 11/30/13 History Fluconazole [Diflucan] 150 mg PO QDAY #1 tablet 11/30/13 Unknown Rx metroNIDAZOLE [Flagyl] 500 mg PO BID #20 tablet 11/30/13 Unknown Rx Benzonatate [Tessalon Perles] 100 mg PO Q8HR PRN #20 capsule 11/23/19 Unknown Rx Ibuprofen [Motrin] 800 mg PO Q8HR PRN #20 tablet 11/23/19 Unknown Rx Sulfamethoxazole/Trimethoprim 1 each PO BID #10 tablet 11/23/19 Unknown Rx [Bactrim DS TAB] traMADoL [Ultram 50 MG tab] 50 mg PO Q6HR PRN #15 tablet 11/23/19 Unknown Rx Dicyclomine [Bentyl] 20 mg PO Q12H PRN #12 tab 03/23/22 Unknown Rx Ondansetron [Zofran Odt] 4 mg PO Q8HR PRN #12 tab.rapdis 03/23/22 Unknown Rx cephALEXin [Keflex] 500 mg PO Q6HR #28 capsule 03/23/22 Unknown Rx Promethazine [Phenergan] 25 mg PO Q6HR PRN 15 Days #30 tab 03/25/22 Unknown Rx ED Physical Exam - General Limitations: No Limitations General appearance: alert, in no apparent distress - Head Head exam: Present: atraumatic, normocephalic - Eye Eye exam: Present: normal appearance - ENT ENT exam: Present: mucous membranes moist - Neck Neck exam: Present: normal inspection - Respiratory Respiratory exam: Present: normal lung sounds bilaterally. Absent: respiratory distress - Cardiovascular Cardiovascular Exam: Present: regular rate, normal rhythm. Absent: systolic murmur, diastolic murmur, rubs, gallop - GI/Abdominal GI/Abdominal exam: Present: soft, normal bowel sounds - Extremities Exam Extremities exam: Present: normal inspection - Back Exam Back exam: Present: normal inspection - Neurological Exam Neurological exam: Present: alert, oriented X3 - Psychiatric Psychiatric exam: Present: normal affect, normal mood - Skin Skin exam: Present: warm, dry, intact, normal color. Absent: rash ED Course Vital Signs 03/25/22 03/25/22 09:32 10:12 Temperature 97.9 F 97.9 F Pulse Rate 90 68 Respiratory 16 20 Rate Blood Pressure 168/90 136/89 [Left] O2 Sat by Pulse 99 100 Oximetry ED Medical Decision Making - Lab Data Result diagrams: 03/25/22 12:30 03/25/22 12:30 - Medical Decision Making 26-year-old female presented to ED with active vomiting white content while attempting to examine patient.. Patient was diagnosed with a UTI and did not have medication fill. Patient states that she was unaware that she had a UTI and that she had a prescription that needed to be fill. Patient states that she has been vomiting since she left the hospital on 03/23/2022. Patient is alert and oriented x3. He states that abdominal cramping is approximately 8 out of 10 at present time. Physical examination patient has diffuse tenderness of the abdomen, active vomiting x1 during examination. Patient given Zofran 4 mg IV, Normal saline i000mg IV , Rocephin 500 mg IV piggyback, morphine 4 mg IV. 1 hour after medication is given patient states pain is 0 out of 10 no more active vomiting noted. Patient instructed to give Keflex and Bentyl prescription filled. We will also add promethazine for nausea. Rechecked the patient is resting quietly quietly and comfortable and feeling better. I discussed the results of diagnostic study, my clinical impression and the plan for further treatment with the patient. Patient agrees with plan and discharge at this present time. All question addressed. I have given the patient instruction regarding a diagnosis ,expectation ,follow- up and return precaution. I explained to the patient that emergent condition may arise and to return to the ED for new worsen and any new persisting condition. I have explained the importance of following up with the primary care physician or referral physician listed below has instructed. The patient verbalized understanding of discharge instruction. Abnormal Lab Results 03/25/22 03/25/22 03/25/22 12:30 12:30 12:30 WBC 9.8 RBC 4.61 Hgb 11.9 Hct 35.5 MCV 77 L MCH 26 L MCHC 34 RDW 17.6 H Plt Count 179 Lymph % (Auto) 11.2 L [place] % (Auto) 3.8 Eos % (Auto) 0.2 Baso % (Auto) 0.4 Lymph # (Auto) 1.1 L [place] # (Auto) 0.4 Eos # (Auto) 0.0 Baso # (Auto) 0.0 Seg Neutrophils % 84.4 H Seg Neutrophils # 8.3 H Sodium 140 Potassium 3.5 L Chloride 100.5 Carbon Dioxide 25 Anion Gap 18 BUN 13 Creatinine 0.8 Estimated GFR > 60 BUN/Creatinine Ratio 16 Glucose 101 H Calcium 9.0 Total Bilirubin 0.50 AST 16 ALT 12 Alkaline Phosphatase 60 Total Protein 7.4 Albumin 4.5 Albumin/Globulin Ratio 1.6 Amylase 338 H Lipase 29 HCG, Quant < 2 Urine Color Urine Turbidity Urine pH Ur Specific [place] Urine Protein Urine Glucose (UA) Urine Ketones Urine Blood Urine Nitrite Urine Bilirubin Urine Urobilinogen Ur Leukocyte Esterase Urine WBC (Auto) Urine RBC (Auto) U Epithel Cells (Auto) Urine Mucus 03/25/22 Unknown WBC RBC Hgb Hct MCV MCH MCHC RDW Plt Count Lymph % (Auto) [place] % (Auto) Eos % (Auto) Baso % (Auto) Lymph # (Auto) [place] # (Auto) Eos # (Auto) Baso # (Auto) Seg Neutrophils % Seg Neutrophils # Sodium Potassium Chloride Carbon Dioxide Anion Gap BUN Creatinine Estimated GFR BUN/Creatinine Ratio Glucose Calcium Total Bilirubin AST ALT Alkaline Phosphatase Total Protein Albumin Albumin/Globulin Ratio Amylase Lipase HCG, Quant Urine Color Yellow Urine Turbidity Clear Urine pH 9.0 H Ur Specific [place] 1.023 Urine Protein 100 mg/dl Urine Glucose (UA) Neg Urine Ketones 20 Urine Blood Neg Urine Nitrite Neg Urine Bilirubin Neg Urine Urobilinogen < 2.0 Ur Leukocyte Esterase Neg Urine WBC (Auto) 2.0 Urine RBC (Auto) < 1.0 U Epithel Cells (Auto) 36.0 H Urine Mucus 3+ Critical care attestation.: If time is entered above; I have spent that time in minutes in the direct care of this critically ill patient, excluding procedure time. ED Disposition Clinical Impression: UTI (urinary tract infection) Qualifiers: Urinary tract infection type: acute cystitis Hematuria presence: without h ematuria Qualified Code(s): N30.00 - Acute cystitis without hematuria Nausea & vomiting Qualifiers: Vomiting type: unspecified Qualified Code(s): R11.2 - Nausea with vomiting, unspecified Disposition: 01 HOME / SELF CARE / HOMELESS Is pt being admited?: No Does the pt Need Aspirin: No Condition: Stable Instructions: Abdominal Pain (ED), Nausea, Adult, Antibiotic Medicine, Adult, [id number], Nausea, Adult, [id number] Additional Instructions: Medication previous prescribed for urinary tract infection feels Return to ED for any worsening symptom Prescriptions: Promethazine [Phenergan] 25 mg PO Q6HR PRN 15 Days #30 tab PRN Reason: Nausea Referrals: DEBBI ANTONIO MD [Primary Care Provider] - 3-5 Days Forms: Work/School Release Form(ED) Time of Disposition: 15:06
[2022-03-25 13:56] LABS: Alanine Aminotransferase 12 units/L (7-56); Albumin 4.5 g/dL (3.9-5); BUN/Creatinine Ratio 16; Blood Urea Nitrogen 13 mg/dL (7-17); Hemolysis Index 8
[2022-03-25 14:04] LABS: Basophils % (Auto) 0.4 % (0.0-1.8); Eosinophils % (Auto) 0.2 % (0.0-4.3); Hematocrit 35.5 % (30.3-42.9); Hemoglobin 11.9 gm/dl (10.1-14.3); Lymphocytes # (Auto) 1.1 K/mm3 (1.2-5.4); Lymphocytes % (Auto) 11.2 % (13.4-35.0); Mean Corpuscular HGB Conc 34 % (30-34); Mean Corpuscular Volume 77 fl (79-97); Monocytes # (Auto) 0.4 K/mm3 (0.0-0.8); Monocytes % (Auto) 3.8 % (0.0-7.3); Platelet Count 179 K/mm3 (140-440); Red Blood Count 4.61 M/mm3 (3.65-5.03); Red Cell Distribution Width 17.6 % (13.2-15.2)
[2022-03-25 14:41] LABS: Bilirubin,Urine NEG (Negative); Blood,Urine NEG (Negative); Color,Urine Yellow (Yellow); Mucus,Urine 3+ /HPF; RBC,Urine < 1.0 /HPF (0.0-6.0); Urobilinogen,Urine < 2.0 mg/dL (<2.0)
== END 2022-03-25 16:00 | disposition home or self-care (01) ==
LOC: ED 09:27
DX: N39.0 Urinary tract infection, site not specified (principal); R11.2 Nausea with vomiting, unspecified; Z91.040 Latex allergy status; F41.9 Anxiety disorder, unspecified
CPT/HCPCS: 36415; 80053; 81001; 82150; 83690; 84702; 85025; 96365; 96372; 96375; 96376; 99283; J0500; J0696; J2270; J2405; J7030